=== PATIENT | male | born 1950 ===

== ENCOUNTER 2017-12-05 08:00 | Outpatient (CLI) | payer MEDICARE, MEDICAID | END 2017-12-05 08:01 | disposition home or self-care (01) | LOC: BICULT 08:00 | PROVIDERS: ATTEND Internal Medicine Nephrology | DX: H90.11 Conductive hearing loss, unilateral, right ear, with unrestricted hearing on the contralateral side (principal); N18.3 Chronic kidney disease, stage 3 (moderate); H70.11 Chronic mastoiditis, right ear; H74.8X1 Other specified disorders of right middle ear and mastoid | CPT/HCPCS: 36415; 70480; 76770; 80048 ==

== ENCOUNTER 2018-02-16 12:11 | Emergency (ER) | payer MEDICARE, MEDICAID ==
[2018-02-16] MEDS ORDERED: diphenhydrAMINE 50 MG/ML VIAL ONE (12:24)
[2018-02-16] MEDS ORDERED: Famotidine/PF 20 mg/2ml Vial ONE (12:24)
[2018-02-16] MEDS ORDERED: methylPREDNISolone Sod Succ/PF 125 MG/2 ML VIAL ONE (12:24)
[2018-02-16] MEDS ORDERED: Water For Inject, Bacteriostat 30 ML ONE (12:26)
== END 2018-02-16 13:31 | disposition home or self-care (01) ==
LOC: SCSER 12:11
DX: T78.3XXA Angioneurotic edema, initial encounter (principal); T46.4X5A Adverse effect of angiotensin-converting-enzyme inhibitors, initial encounter; I10 Essential (primary) hypertension; E11.9 Type 2 diabetes mellitus without complications; Z79.899 Other long term (current) drug therapy
CPT/HCPCS: 96374; 96375; J1200; J2930; S0028

== ENCOUNTER 2024-05-11 16:46 | Outpatient (CLI) | payer MEDICARE, MEDICAID | END 2024-05-11 16:47 | disposition home or self-care (01) | LOC: SCSRAD 16:46 | PROVIDERS: ATTEND Family Medicine | DX: M79.18 Myalgia, other site (principal); M16.0 Bilateral primary osteoarthritis of hip; M77.8 Other enthesopathies, not elsewhere classified; I73.9 Peripheral vascular disease, unspecified; M25.759 Osteophyte, unspecified hip | CPT/HCPCS: 72202 ==